=== PATIENT | female | born 1970 | race Two or more races ===

== ENCOUNTER 2018-05-16 19:18 | Emergency (ER) | payer OTHER ==
[2018-05-16 19:28] VITALS: BP 148/77
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
== END 2018-05-16 20:25 | disposition home or self-care (01) ==
DX: S39.012A Strain of muscle, fascia and tendon of lower back, initial encounter (principal); V49.49XA Driver injured in collision with other motor vehicles in traffic accident, initial encounter; Y92.410 Unspecified street and highway as the place of occurrence of the external cause; Y99.9 Unspecified external cause status